=== PATIENT | male | born 1975 | race American Indian/Alaskan Native ===

== ENCOUNTER 2020-08-05 10:10 | Outpatient (CLI) | payer OTHER ==
--- NOTE | 2020-08-05 11:55 | Ultrasound Report ---
US thyroid scan INDICATION / CLINICAL INFORMATION: THROTOXICOSIS IN SETTING OF THYROID NODULE. COMPARISON: None available. FINDINGS: RIGHT LOBE: Size = 6.4 cm. Mildly heterogeneous. No hyperemia LEFT LOBE: Size = 6.5 cm. Mildly heterogeneous. No hyperemia ISTHMUS: 0.6 cm. NODULES: Nodules are present as described below. Please note that nodules less than 5 mm are not desc ribed per TIRADS criteria and a maximum of 4 nodules will be described. NODULE # 1 -- Location: Left upper pole -- Size: 1.45 cm. -- Composition: solid -- Echogenicity: hypoechoic -- Shape: wider than tall -- Margin: smooth -- Echogenic Foci: none -- ACR TI-RADS Score = 4 IMPRESSION: 1. Left TR4 nodule measuring 1.45m mm. Recommend follow up ultrasound 1 year. ACR TI-RADS Thyroid Nodule Recommendations TI-RADS 1 (0 points) ----- BENIGN. No Fine Needle Aspirate biopsy (FNA) or follow-up. TI-RADS 2 (1-2 points) -- NOT SUSPICIOUS. No FNA or follow-up. TI-RADS 3 (3 points) ----- MILDLY SUSPICIOUS. Follow up in 1 year if >= 1.5 cm. FNA if >= 2.5 cm. TI-RADS 4 (4-6 points) -- MODERATELY SUSPICIOUS. Follow up in 1 year if >= 1.0 cm. FNA if >= 1.5 cm. TI-RADS 5 (7+ points) --- HIGHLY SUSPICIOUS. Follow up in 1 year if >= 0.5 cm. FNA if >= 1.0 cm. NOTE: Nodules < 1 cm do not typically require follow-up or FNA unless there are suspicious features ( JESSICA, 2015) Signer Name: Gera Flood MD Signed: 08/05/2020 11:50 AM Workstation Name: [id number]
== END 2020-08-05 10:11 | disposition home or self-care (01) ==
LOC: US 10:10
PROVIDERS: ATTEND Internal Medicine
DX: E04.1 Nontoxic single thyroid nodule (principal); E05.10 Thyrotoxicosis with toxic single thyroid nodule without thyrotoxic crisis or storm
CPT/HCPCS: 76536

== ENCOUNTER 2021-01-27 09:38 | Outpatient (CLI) | payer OTHER ==
[2021-01-27 10:41] LABS: Blood Urea Nitrogen 19 mg/dL (9-20)
--- NOTE | 2021-01-27 12:03 | Cat Scan Report ---
CT neck wo/w con INDICATION / CLINICAL INFORMATION: 45 years Male; THYROID DISORDER 100 ml omni 300 . TECHNIQUE: Contiguous thin cut axial images obtained through the neck following IV contrast. Sagittal and reyna l reconstructions performed by the technologist. All CT scans at this location are performed using CT dose reduction for ALARA by means of automated exposure control. COMPARISON: None available. FINDINGS: MUCOSAL SPACE: No focal lesions are seen involving the oral pharyngeal soft tissues at. There is beam hardening artifact resulting from the patient's dental amalgam. There is mild prominence of the base of tongue soft tissues most consistent with lymphoid hypertrophy. The epiglottis is appropriate in s ize at. The laryngeal structures are grossly unremarkable LYMPH NODES: There are scattered cervical lymph nodes, the largest within the jugulodigastric regions measuring approximately 0.9 cm in short axis dimension. The nodes are nonspecific though may be a re active given the configuration. No necrotic foci are identified. SALIVARY GLANDS: The visualized parotid and submandibular glands appear to demonstrate symmetric atte nuation without calcification. THYROID GLAND: There is notable beam hardening artifact which appears the thyroid gland related to th e overlying clavicles as well as the dense contrast within the left venous structures. However, there appears be a focus of relative decreased attenuation within the mid to upper left lobe of thyroid gl and measuring approximately 1.8 cm in greatest transverse dimension at. This finding would appear to correlate with a nodule on the recent ultrasound of 08/05/2020. By size criteria, this finding appear s to slightly increase in size. Increased vascularity was noted on the previous ultrasound and correl ation would be needed. PARANASAL SINUSES: Visualized paranasal sinuses and mastoid air cells are essentially clear. SPINE: There are notable degenerative the disc changes at C6-7 and milder at C5-6. VASCULAR STRUCTURES: Vascular structures are grossly normal in appearance. IMPRESSION: 1. There is a 1.8 cm focus of relative decreased attenuation projected within the mid to upper left l obe of the thyroid gland which appears to correlate with an echogenic nodule on the previous thyroid ultrasound of 08/05/2020 as detailed above. Signer Name: Jonas Garcia MD Signed: 01/27/2021 11:59 AM Workstation Name: [id number]
== END 2021-01-27 09:39 | disposition home or self-care (01) ==
LOC: CT 09:38
PROVIDERS: ATTEND Obstetrics & Gynecology
DX: E07.9 Disorder of thyroid, unspecified (principal); M47.812 Spondylosis without myelopathy or radiculopathy, cervical region
CPT/HCPCS: 36415; 70492; 82565; 84520; Q9967